=== PATIENT | male | born 1980 | race Caucasian/White ===

== ENCOUNTER 2019-08-08 23:30 | Emergency (ER) | payer MEDICAID ==
[2019-08-08] MEDS ORDERED: KETOROLAC 30 MG/ML VIAL IVP STA (23:53)
[2019-08-08] MEDS ORDERED: MORPHINE 2 MG/ML CARPUJECT IVP STA (23:53)
[2019-08-08] MEDS ORDERED: SODIUM CHLORIDE 0.9% 1,000 ML IV STA (23:53)
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
[2019-08-09] MEDS ORDERED: PROPOFOL 200 MG/20 ML VIAL IVP STA ×3 (01:12→02:39)
[2019-08-09] MEDS ORDERED: fentaNYL 100 MCG/2 ML VIAL IVP STA ×2 (01:12→02:39)
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
[2019-08-09 07:15] VITALS: BP 129/78
--- NOTE | 2019-08-09 08:15 | XRAY Report ---
PROCEDURE: Shoulder 3 View RT INDICATIONS: fall onto right shoulder; ? dislocated TECHNIQUE: 3 views of the shoulder were acquired. COMPARISON: None. FINDINGS: Bones: The humeral head is located anterior and inferior to the glenohumeral joint. There is no visua lized fracture or dislocation. No suspicious bony lesions. Visualized ribs appear intact. Soft tissues: No suspicious soft tissue calcifications. IMPRESSION: Anterior glenohumeral dislocation without visualized fracture. The above findings are concordant with preliminary report. Reviewed by: Meena Sanchez MD on 08/09/2019 8:13 AM PDT Approved by: Meena Sanchez MD on 08/09/2019 8:13 AM PDT Station ID: [id number]
--- NOTE | 2019-08-09 08:17 | XRAY Report ---
PROCEDURE: Shoulder 2 View RT INDICATIONS: post reduction TECHNIQUE: 2 views of the shoulder were acquired. COMPARISON: X-ray shoulder 08/09/2019 FINDINGS: Bones: There has been interval reduction of the previous anterior shoulder dislocation. There is good anatomic alignment. A visualized impaction fracture is noted along the posterior aspect of the right humeral head, not well seen on prior exam. No suspicious bony lesions. Visualized ribs appear intac t. Soft tissues: No suspicious soft tissue calcifications. IMPRESSION: Interval reduction with good anatomic alignment. Impaction fracture noted along the post erior right humeral head. The above findings are concordant with preliminary report. Reviewed by: Meena Sanchez MD on 08/09/2019 8:16 AM PDT Approved by: Meena Sanchez MD on 08/09/2019 8:16 AM PDT Station ID: [id number]
== END 2019-08-09 07:31 | disposition home or self-care (01) ==
LOC: ED 23:30
DX: T69.9XXA Effect of reduced temperature, unspecified, initial encounter (principal); X31.XXXA Exposure to excessive natural cold, initial encounter; W19.XXXA Unspecified fall, initial encounter; Y93.89 Activity, other specified; Y92.814 Boat as the place of occurrence of the external cause; S43.014A Anterior dislocation of right humerus, initial encounter
CPT/HCPCS: 99152; 99284